=== PATIENT | female | born 1960 | race Caucasian/White ===

== ENCOUNTER 2016-12-27 18:19 | Emergency (ER) | payer MEDICAID ==
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
== END 2016-12-27 19:15 | disposition disaster alternative care site (69) ==
LOC: GACC 18:19
DX: S93.401A Sprain of unspecified ligament of right ankle, initial encounter (principal); S80.01XA Contusion of right knee, initial encounter; G62.9 Polyneuropathy, unspecified; K70.40 Alcoholic hepatic failure without coma; K70.30 Alcoholic cirrhosis of liver without ascites; F10.10 Alcohol abuse, uncomplicated; G40.909 Epilepsy, unspecified, not intractable, without status epilepticus; Z88.8 Allergy status to other drugs, medicaments and biological substances; Z87.891 Personal history of nicotine dependence; Z98.890 Other specified postprocedural states; W01.0XXA Fall on same level from slipping, tripping and stumbling without subsequent striking against object, initial encounter; Y93.01 Activity, walking, marching and hiking; Y99.8 Other external cause status

== ENCOUNTER → 2016-12-27 | Outpatient (CLI) | payer MEDICAID ==
[~2016-12-27] MED LIST: B-1100 MG PO; BUSPAR5 MG PO; COLACE100 MG PO; CYMBALTA60 MG PO; DESYREL100 MG PO; DRISDOL 5050000 UNIT PO; DULCOLAX10 MG R; FISH OIL1000 MG PO; GINKGO BILOBA120 M1 PO; HYDROCODON-ACE1 EAC4 PO; LEVAQUIN500 MG PO; LYRICA 75MG CAP75 MG PO; MACROBID100 MG PO; MELATIN3 MG PO; MILK OF MA400 MG/5 M PO; MIRALAX17 GM PO; MIRAPEX0.5 MG PO; NEURONTIN600 MG PO; NORCO 10-325 T1 EACH PO; PRENATAL 1+1)(P1 TAB PO; VESICARE10 MG PO; VITAMIN B-1000 MCG/M SUB-Q; VITAMIN B-12250 MCG PO; VYVANSE10 MG PO; [UNRECOGNIZED DRUG - OTHER] PO
== END | disposition disaster alternative care site (69) ==
LOC: GAMB 17:54
DX: M25.561 Pain in right knee (principal); M25.571 Pain in right ankle and joints of right foot; R29.6 Repeated falls
CPT/HCPCS: A0425; A0429